=== PATIENT | female | born 1950 | race Caucasian/White ===

== ENCOUNTER → 2018-10-30 19:13 | Outpatient (REF) | payer MEDICARE, OTHER, SELFPAY ==
[2018-10-30 20:17] LABS: Add Manual Diff / Slide Review NO; Alanine Aminotransferase 35 IU/L (9-52); Albumin 4.4 g/dL (3.5-5.0); Albumin Globulin Ratio 1.5 (1.0-2.8); Alkaline Phosphatase 151 U/L (38-126); Aspartate Aminotransferase 28 IU/L (14-36); BUN Creatinine Ratio 16.3 (6-22); Basophils Absolute Auto 0 /uL (0-100); Basophils Percent Auto 0.7 % (0-2); Bilirubin Total 0.5 mg/dL (0.2-1.3); Blood Urea Nitrogen 13 mg/dL (7-17); Calcium 9.4 mg/dL (8.4-10.2); Carbon Dioxide 26 mmol/L (22-32); Chloride 104 mmol/L (98-107); Cholesterol 224 mg/dL (140-199); Eosinophils Absolute Auto 200 /uL (0-450); Eosinophils Percent Auto 3.8 % (2-4); Estimated Glomerular Filt Rate > 60.0 mL/min (>60); Glucose 84 mg/dL (80-110); HDL Cholesterol 41 mg/dL (40-60); HEMOLYSIS < 15 (0-50); Hematocrit 42.5 % (36-46); Hemoglobin 14.1 g/dL (12.0-16.0); LDL Cholesterol Calculated 117 mg/dL (<100); Lymphocytes Absolute Auto 2000 /uL (1100-4500); Lymphocytes Percent Auto 34.4 % (25-40); Mean Corpuscular HGB Conc 33.2 % (30-36); Mean Corpuscular Hemoglobin 28.4 PG (26-34); Mean Corpuscular Volume 85.4 fL (80-100); Monocytes Absolute Auto 800 /uL (0-900); Neutrophils Absolute Auto 2700 /uL (1500-7000); Neutrophils Percent Auto 47.1 % (50-75); Platelet Count 214 X10^3/uL (150-400); Potassium 4.1 mmol/L (3.4-5.1); Red Blood Cell Count 4.97 X10^6/uL (4.0-5.2); Sodium 140 mmol/L (137-145); Total Protein 7.4 g/dL (6.3-8.2); Triglycerides 328 mg/dL (35-150); White Blood Cell Count 5.8 X10^3/uL (4.5-11.0)
[2018-10-30 20:47] LABS: Thyroid Stimulating Hormone 1.57 uIU/mL (0.47-4.68)
== END ==
LOC: LAB 19:13
PROVIDERS: Visit Provider Physician Assistant Medical
DX: R42 Dizziness and giddiness (principal); E78.5 Hyperlipidemia, unspecified; Z13.29 Encounter for screening for other suspected endocrine disorder
CPT/HCPCS: 36415; 80053; 80061; 84443; 85025

== ENCOUNTER 2018-12-18 11:41 | Day surgery (SDC) | payer MEDICARE, OTHER, SELFPAY ==
--- NOTE | 2018-10-31 17:08 | PM.PREOP ---
Pre-operative Note Interval Note History & Physical reviewed/Exam performed by Physician: Yes Changes to H&P: No
--- NOTE | 2018-12-15 12:01 | PM.PREOP ---
Pre-operative Note Interval Note History & Physical reviewed/Exam performed by Physician: Yes Changes to H&P: No
--- NOTE | 2018-12-15 12:02 | PM.OP.1 ---
Operative Date/Time/Diagnoses Date of procedure: 12/18/18 Time of procedure: 14:15 Procedure & Clinicians Procedure: Preoperative diagnoses: 1. Mature right nuclear sclerotic and cortical cataract with need for complex surgery with capsular dye and MiLOOP. 2. Vertigo with inability to lie flat on less than 3 pillows so need for general anesthesia. 3. Recent upper respiratory infection now resolved. Postoperative diagnoses: 1. Complex cataract removed by phacoemulsification with placement of posterior chamber intraocular lens. Procedure: Phacoemulsification with posterior chamber intraocular lens implant Surgeon: Sonam Fournier MD Complications: None Specimen: None Implant: ZCBOO+25.0 Blood loss: None Anesthesia: General with monitored standby. Retrobulbar suplemental anesthesia. Description of procedure: Patient presents with a complaint of decreased vision due to cataract which is affecting activities of daily living. The patient wants surgery to improve vision. She has chronic vertigo and states she is unable to lie flat on less than 3 pillows. Therefore a general anesthetic as planned. She is also delayed surgery due to other illnesses and has a mature cataract with need for capsular dye and a Miloop to decrease intraoperative energy and surgical risk and improve healing. The patient was taken to the operating room and given IV sedation. A laryngeal mask airway is inserted after a trial of trying to lie at less than 75 degrees failed..A retrobulbar block inferiorly of 4 cc of 2 percent lidocaine with 0.75 bupivacaine and hyaluronidase. The eye is manually massaged for 30 sec, prepped using Betadine solution, and draped in the usual sterile fashion. Topical prparacaine drops are placed. Temporal approach was made with a 1 mm side-port incision was made 90? from the proposed clear corneal incision position. Phenylephrine 1.5% mixed with 1% xylocaine 0.2 cc was placed into the anterior chamber. An air bubble was placed and the Visudyne capsular dye was placed into the anterior chamber to coat the anterior capsule. The air bubble was then removed. Viscoat followed by Vanessa was then placed. A 2.6 mm clear incision with a 2.6 mm blade was placed. A 360 degree capsulorrhexis style capsulotomy was then performed with a cystitome needle on a Healon greatly aided by the capsular dye. Hydrodelineation and hydrodissection were performed. The MiLOOP device was inspected and inserted in the neutral position into the anterior chamber.It was then placed around the right side of the nucleus under the capsulorrhexis and in the central position the nucleus was kevin-dissected, rotated and dissected again after removing the first quadrant. The device was then removed from the eye. The phacoemulsification unit is introduced, and used to emulsify the central lens. It is then removed in chopping mode. Epi nucleus is removed with epinuclear mode and irrigation aspiration was used to remove the peripheral cortex. The posterior capsule is polished. The intraocular lens is selected, inspected, power confirmed, and placed in the posterior chamber. The pupil was constricted with Miostat.. The wound was stromally hydrated and tested for leaks, there was none and it was left sutureless. Vigamox 0.1 cc was placed into the anterior chamber. Kenalog 0.2 cc was placed in the superior subconjunctival space. A drop of antibiotic and was placed and the eye was patched and shielded. The patient was stable and returned to the recovery room in excellent condition. Dictated by: Sonam Fournier MD Copy to: [facility]
[2018-12-18] VITALS (8 sets, daily range): BP systolic 136–184; BP diastolic 70–95; PULSE 56–93; RESP 10–19; TEMP 36.3–36.8; O2SAT 93–98; BMI 28.6
[2018-12-18] MEDS: PROPARACAINE 0.5% OPHTH SOL 2 DROPS EYE-OP (13:57)
[2018-12-18] MEDS: CATARACT EYE COMPOUND (10 DROPS/SYRINGE) 3 DROPS EYE-OP (14:05)
[2018-12-18] MEDS: LIDOCAINE 2% 4 ML, BUPIVACAINE 0.5% (PF) 4 ML, HYALURONIDASE 150 UNIT INJ (15:29)
[2018-12-18] MEDS: MOXIFLOXACIN OPHTH DROPS 3 ML BOTTLE 2 DROPS INJ (15:31)
[2018-12-18] MEDS: PHENYLEPHRINE/LIDOCAINE VIAL (OR) 0.2 ML EYE-OP (15:31)
[2018-12-18] MEDS: CHONDROIDTIN/SOD HYALURONATE 1.05 ML SYRINGE INTRAOCULA (15:32)
[2018-12-18] MEDS: BALANCED SALT IRRIG SOLN NO.2 15 ML IRR (15:32)
[2018-12-18] MEDS: TRIAMCINOLONE 50 MG/5 ML VIAL INJ (15:32)
[2018-12-18] MEDS: HYALURONATE SODIUM 10 MG/ML SYRINGE INJ (15:33)
[2018-12-18] MEDS: CARBACHOL 1.5 ML VIAL INJ (15:33)
[2018-12-18] MEDS: NEOMYCIN/POLY/DEX OPHTH OINT 1 APPLIC EYE-RIGHT (15:33)
[2018-12-18] MEDS: TRYPAN BLUE 0.5 ML SYRINGE INJ (15:34)
[2018-12-18] MEDS: OFLOXACIN 0.3% OPHTH 5 ML 2 DROPS EYE-RIGHT (15:34)
[2018-12-18] MEDS: BALANCED SALT IRRIG SOLN NO.2 500 ML, EPINEPHrine 1 MG IRR (15:35)
[2018-12-18] MEDS: ACETAMINOPHEN 325 MG TABLET 650 MG PO (16:27)
== END 2018-12-18 17:30 | disposition home or self-care (01) ==
PROVIDERS: PCP Family Medicine Geriatric Medicine; Visit Provider Ophthalmology
PROC: (CPT 66982; principal; 2018-12-18 14:15)
DX: H25.811 Combined forms of age-related cataract, right eye (principal); R42 Dizziness and giddiness
CPT/HCPCS: 66982; J0171; J2250; J2704; J3010; J3301; J3470

== ENCOUNTER 2019-02-19 10:20 | Day surgery (SDC) | payer MEDICARE, OTHER, SELFPAY ==
--- NOTE | 2019-02-15 18:50 | PM.PREOP ---
Pre-operative Note Interval Note History & Physical reviewed/Exam performed by Physician: Yes Changes to H&P: No
--- NOTE | 2019-02-15 18:51 | PM.OP.1 ---
Operative Date/Time/Diagnoses Date of procedure: 02/19/19 Time of procedure: 11:45 Procedure & Clinicians Procedure: Preoperative diagnoses: 1. Left advanced cataract surgery with PCIOL. 2. Mature or advanced nuclear sclerotic and cortical cataract with poor visibility of the anterior capsule increasing surgical risks of complications. 3. Severe vetigo, cannot lie flat, needs gereal anesthesia. Postoperative diagnoses: 1. Left phacoemulsification surgery with placement of a posterior chamber intraocular lens implant. Surgeon: Sonam Fournier MD Complications: none Specimen: None Implant: ZCBOO+25.5 Blood loss: None Anesthesia: General and Retrobulbar with monitored standby. Description of procedure: Dictated by: Sonam Fournier MD Copy to: [facility] Post operative diagnoses: 1. Left cataract removed with placement of a posterior chamber intraocular lens. Procedure: Phacoemulsification with posterior chamber intraocular lens implant Surgeon: Sonam Fournier MD Blood loss: None Anesthesia: General and retrobulbar with monitored standby, Laryngeal mask airway due to inability to lie flat. Description of procedure: Patient has presented with decreased vision due to cataract which is affecting activities of daily living. The patient wants surgery to improve vision. She has had severe vertigo and has been unable to lie flat for surgery. She requires general anesthesia given with her on her side and then placed into the operating position. Additional anesthetic was given for postoperative comfort. She has delete surgery for some time and has an advanced cataract.She previuosly had right cataract surgery for mature cataract. The patient was taken to the operating room and given IV sedation. A laryngeal mask airway was placed in the sitting position and then she was placed in a recumbent position. A retrobulbar block consisting of 6 cc of 2% xylocaine without epinephrine mixed half and half with 0.5% Marcaine with 1 cc of hyaluronidase added is placed between the medial and lateral 1/3 of the inferior orbital rim. The eye is manually massaged for 30 sec, prepped using Betadine solution, and draped in the usual sterile fashion. Temporal approach was made, a 1 mm side-port incision was performed 90 degrees from the planned corneal wound. Phenylephrine 1.5% mixed with 1% xylocaine 0.2 cc was placed into the anterior chamber. Viscoat followed by Vanessa was then placed. A 2.6 mm clear incision with a 2.6 mm blade was placed. A 360 degree capsulorrhexis style capsulotomy was then performed with a cystitome needle on a Lifesumon. Hydrodelineation and hydrodissection were performed. The phacoemulsification unit is introduced, and sculpting used to groove the central lens. Hard nuclear settings were used and efficient phacoemulsification power was needed for this lens density. It is then removed in chopping mode. Epi nucleus is removed with epinuclear mode and irrigation aspiration was used to remove the peripheral cortex. The posterior capsule is polished. The intraocular lens is selected, inspected, power confirmed, and placed in the posterior chamber. The pupil was constricted with Miostat. The wound was stromally hydrated and tested for leaks, there was none and was left sutureless. Vigamox 0.1 cc was placed into the anterior chamber. Kenalog 0.2 cc was placed in the superior subconjunctival space. A drop of antibiotic and was placed and the eye was patched and shielded. The patient was stable and returned to the recovery room in excellent condition. Dictated by: Sonam Fournier MD Copy to: [facility]
[2019-02-19] MEDS: PROPARACAINE 0.5% OPHTH SOL 2 DROPS EYE-LEFT (10:35)
[2019-02-19] MEDS: CATARACT EYE COMPOUND (10 DROPS/SYRINGE) 3 DROPS EYE-OP (10:40)
[2019-02-19 10:45] VITALS: BP 147/85; PULSE 67; RESP 15; TEMP 36.3; O2SAT 97; BMI 28.8
[2019-02-19] MEDS: CARBACHOL 1.5 ML VIAL INJ (12:16)
[2019-02-19] MEDS: BALANCED SALT IRRIG SOLN NO.2 15 ML IRR (12:16)
[2019-02-19] MEDS: CHONDROIDTIN/SOD HYALURONATE 1.05 ML SYRINGE INTRAOCULA (12:16)
[2019-02-19] MEDS: NEOMYCIN/POLY/DEX OPHTH OINT 1 APPLIC EYE-LEFT (12:17)
[2019-02-19] MEDS: HYALURONATE SODIUM 10 MG/ML SYRINGE INJ (12:17)
[2019-02-19] MEDS: MOXIFLOXACIN OPHTH DROPS 3 ML BOTTLE 2 DROPS INJ (12:17)
[2019-02-19] MEDS: TRIAMCINOLONE 50 MG/5 ML VIAL INJ (12:18)
[2019-02-19] MEDS: BALANCED SALT IRRIG SOLN NO.2 500 ML, EPINEPHrine 1 MG IRR (12:18)
[2019-02-19] MEDS: PHENYLEPHRINE/LIDOCAINE VIAL (OR) 0.2 ML EYE-OP (12:18)
[2019-02-19] MEDS: LIDOCAINE 2% 4 ML, BUPIVACAINE 0.5% (PF) 4 ML, HYALURONIDASE 150 UNIT INJ (12:19)
[2019-02-19 12:46] VITALS: BP 117/77; PULSE 75; RESP 16; TEMP 36.7; O2SAT 92
[2019-02-19 12:48] VITALS: BP 113/78; PULSE 75; RESP 17; O2SAT 93
[2019-02-19 13:00] VITALS: BP 124/64; PULSE 62; RESP 16; TEMP 36.7; O2SAT 95
[2019-02-19 14:00] VITALS: BP 130/79; PULSE 68; RESP 14; TEMP 36.7; O2SAT 96
[2019-02-19 14:30] VITALS: BP 141/84; PULSE 65; RESP 16; TEMP 36.6; O2SAT 97
--- NOTE | 2019-02-19 15:13 | SUR.PHASEII ---
late entry: assumed care from Joey, pt from PACU c/o beeing sleepy and dizzy, VSS, brought in, d/c instructions discussed, both voiced an understanding. Pt finally ready to go, dressed with assist of . Pt left in stable condition.
== END 2019-02-19 14:40 | disposition home or self-care (01) ==
LOC: OR 10:22
PROVIDERS: PCP Family Medicine Geriatric Medicine; Visit Provider Ophthalmology
PROC: (CPT 66984; principal; 2019-02-19 11:45)
DX: H25.12 Age-related nuclear cataract, left eye (principal); R42 Dizziness and giddiness
CPT/HCPCS: 66984; J0171; J2704; J3301; J3470